=== PATIENT | male | born 1960 | race Asian ===

== ENCOUNTER 2018-05-25 06:12 | Day surgery (SDC) | payer OTHER ==
[~2018-05-25] VITALS: Ht 172.7 cm; Wt 66.7 kg
[2018-05-25] VITALS (14 sets, daily range): BP systolic 95–126; BP diastolic 58–88; PULSE 62–90; RESP 10–18; Ht 172.7 cm; Wt 66.7 kg
--- NOTE | 2018-05-25 07:27 | PREAC ---
Date/Time of Note Date/Time of Note DATE: 05/25/18 TIME: 07:26 Anesthesia Eval and Record Evaluation Time Pre-Procedure Interview DATE: 05/25/18 TIME: 07:26 Age 58 Sex male NPO: 8 hrs Preoperative diagnosis RIGHT INGUINAL HERNIA, NO OBSTRUCTION Planned procedure OPEN RIGHT INGUINAL HERNIA REPAIR Past Medical History Past Medical History: Includes Pulm: Smoking Hx (20 PY) Surgery & Anesthesia Issues No known issue Meds Anticoagulation: No Beta Brian within 24 hr: No Reason Beta Brian not given: Pt. not on B-Brian No Active Prescriptions or Reported Meds Current Medications Cefazolin Sodium/ Dextrose 50 ml @ 100 mls/hr PRE-OP IVPB ; Start 05/25/18 at 09:00 Sodium Chloride 1,000 ml @ 75 mls/hr [id number] IV ; Start 05/25/18 at 09:00; Stop 05/25/18 at 21:00 Meds reviewed: Yes Allergies Coded Allergies: No Known Drug Allergy (Verified Allergy, Unknown, 05/25/18) Allergies Reviewed: Yes Labs/Studies Labs Reviewed: Reviewed by anesthesiologist test: N/A Studies: ECG (SR), CXR (NL) Pre-procedure Exam Last vitals Vital Signs Date Temp Pulse Resp B/P (MAP) Pulse Ox O2 O2 Flow FiO2 Time Delivery Rate 05/25/18 97.7 90 18 110/70 98 Room Air 06:44 (83) Airway: Adequate mouth opening, Adequate thyromental dist Mallampati: Mallampati II Teeth: Normal Lung: Normal Heart: Normal ASA Physical Status ASA physical status: 2 Emergency: None Planned Anesthetic General/MAC: ETT Nerve block: TAP (right) Planned Pain Management Single shot nerve block, Parenteral pain med Pre-operative Attestations Prior to commencing anesthesia and surgery, the patient was re-evaluated, there was verification of: *The patient's identity *The results of appropriate recent lab work and preoperative vital signs *The above evaluation not changing prior to induction *Anesthetic plan, risk benefits, alternative and complications discussed with patient/family; questions answered; patient/family understands, accepts and wishes to proceed. Rohan Dunn M.D. May 25, 2018 07:27
[2018-05-25] MEDS ORDERED: OXYCODONE/ACETAMINOPHEN (5/325) TAB PO PRN ×2 (07:30)
[2018-05-25] MEDS ORDERED: DIPHENHYDRAMINE 50 MG INJ IV PRN (07:30)
[2018-05-25] MEDS ORDERED: MIDAZOLAM 1 MG/ML 2 ML INJ IV PRN (07:30)
[2018-05-25] MEDS ORDERED: LABETALOL HCL 20MG INJ IV PRN (07:30)
[2018-05-25] MEDS ORDERED: EPHEDrine SULFATE 50 MG/5 ML SYG IV PRN (07:30)
[2018-05-25] MEDS ORDERED: ALBUTEROL 0.083% (NEB) 2.5 MG/3 ML AMP HHN PRN (07:30)
[2018-05-25] MEDS ORDERED: TRIMETHOBENZAMIDE 100 MG/ML VIAL IM PRN (07:30)
[2018-05-25] MEDS ORDERED: MEPERIDINE 25 MG INJ IV PRN (07:30)
[2018-05-25] MEDS ORDERED: ONDANSETRON 4 MG INJ IV PRN (07:30)
[2018-05-25] MEDS ORDERED: HYDROmorphONE 1 MG/5 ML IV SYRINGE IV PRN ×2 (07:30)
[2018-05-25] MEDS ORDERED: hydrALAzine 20 MG INJ IV PRN (07:30)
[2018-05-25] MEDS ORDERED: IPRATROPIUM (NEB) 0.5 MG/2.5 ML AMP HHN PRN (07:30)
[2018-05-25] MEDS ORDERED: FENTAnyl 50 MCG/ML VIAL IV PRN ×2 (07:30)
[2018-05-25] MEDS ORDERED: FENTAnyl 50 MCG/ML VIAL ONE (07:41)
[2018-05-25] MEDS ORDERED: CEFAZOLIN 1 GM INJ ONE (07:41)
[2018-05-25] MEDS ORDERED: PROPOFOL 20 ML ONE (07:41)
[2018-05-25] MEDS ORDERED: ROCURONIUM 50 MG INJ ONE (07:41)
[2018-05-25] MEDS ORDERED: MIDAZOLAM 1 MG/ML 2 ML INJ ONE (07:41)
[2018-05-25] MEDS ORDERED: NEOSTIGMINE 3 MG/3 ML SYRINGE ONE ×2 (07:41→08:45)
[2018-05-25] MEDS ORDERED: GLYCOPYRROLATE 0.4 MG INJ ONE ×2 (07:41→08:45)
[2018-05-25] MEDS ORDERED: ONDANSETRON 4 MG INJ ONE (07:42)
[2018-05-25] MEDS ORDERED: DEXAMETHASONE 4 MG/ML 5 ML INJ ONE (07:42)
[2018-05-25] MEDS ORDERED: ROPIVACAINE 0.5 % 30 ML VIAL ONE (07:43)
[2018-05-25] MEDS ORDERED: PHENYLephrine (100 MCG/ML) 10ML SYG ONE (08:01)
[2018-05-25] MEDS ORDERED: POLYMYXIN/BACITRACIN 1L IRRIG IRR ONE (08:20)
--- NOTE | 2018-05-25 08:59 | OPR ---
Date/Time of Note Date/Time of Note DATE: 05/25/18 TIME: 08:55 Operative Report Procedure Date: May 25, 2018 Preoperative Diagnosis right incarcerated inguinal hernia Postoperative Diagnosis same Operation/Procedure Performed right incarcerated inguinal hernia repair with medium ultrapro plug mesh Surgeon see signature line Relationship Executive none Anesthesia Type: general Estimated Blood Loss: 0 - 10 ml's Transfusion none Specimen none Grafts/Implants none Complications none Pt Condition Post Procedure: stable Indications This is a 58-year-old male with incarcerated right inguinal hernia. He requires surgical repair. Risks alternatives benefits of percent were discussed with the patient. Patient expressed understanding and consents to the operation. Procedure Description Patient is taken to the OR and prepped and draped in usual sterile fashion. Surgical time was performed. IV antibiotics were given. Right inguinal oblique incision was made with a 10 blade. Dissection with cautery was carried onto the externally fascia. The external fascia was opened with a 15 blade. This incision is extended medial fairly lateral sparely with Metzenbaum scissors. Cord structures identified circumflex with a Friedens drain. Indirect hernia was dissected out and lysis of adhesions performed to manually reduce. The hernia sac was then isolated and the sac was opened. A sliding component was identified and manually reduced. The hernia sac was then suture ligated with 0 Vicryl and the excess sac was then excised and discarded. The disc portion of the ultra pro hernia system mesh was then used to secure and posterior this area. This disc is secured with running 0 Prolene from the pubic tubercle along the shelving is unlimited. Superiorly the disc is secured to enter oblique with interrupted 3-0 Vicryl. Onlay mesh was secured in a similar fashion with a running 0 Prolene made from the pubic tubercle along the shelving is unlimited. Straps are created reapproximate around the cord structures with interrupted 0 Prolene to recreate the inguinal ring. Onlay mesh was secured to enter oblique with interrupted 3-0 Vicryl. Externally fascia is closed with a running 3-0 Vicryl. Shilo's fascia was closed with interrupted 0 Vicryl. Skin is closed using a inyourdelivery observable skin stapler. A tap block was provided by the anesthesiologist at the beginning the case. Steri-Strips and dry dressings were applied. Gin QUINN May 25, 2018 08:58
[2018-05-25] MEDS ORDERED: HYDROCODONE/APAP (5/325) TAB PO ONE (09:00)
[2018-05-25] MEDS ORDERED: SOD CHLORIDE 0.9% 1,000 ML IV SCH (09:00)
[2018-05-25] MEDS ORDERED: CEFAZOLIN 2 GM/50 ML (PMX) 50 ML IVPB SCH (09:00)
--- NOTE | 2018-05-25 09:01 | PAC ---
Date/Time of Note Date/Time of Note DATE: 05/25/18 TIME: 09:01 Post-Anesthesia Notes Post-Anesthesia Note Last documented vital signs Vital Signs Date Temp Pulse Resp B/P (MAP) Pulse Ox O2 O2 Flow FiO2 Time Delivery Rate 05/25/18 97.7 90 18 110/70 98 Room Air 06:44 (83) Activity: WNL Respiratory function: WNL Cardiovascular function: WNL Mental status: Baseline Pain reasonably controlled: Yes Hydration appropriate: Yes Nausea/Vomiting absent: Yes Rohan Dunn M.D. May 25, 2018 09:01
[2018-05-25] MEDS: HYDROmorphONE 1 MG/5 ML IV SYRINGE IV PRN ×2 (09:14→09:57)
[2018-05-25] MEDS: FENTAnyl 50 MCG/ML VIAL IV PRN ×2 (09:31→09:58)
== END 2018-05-25 11:15 | disposition home or self-care (01) ==
LOC: SDS 06:12
PROVIDERS: ATTEND Surgery
DX: K40.90 Unilateral inguinal hernia, without obstruction or gangrene, not specified as recurrent (principal)
CPT/HCPCS: 49507; C1781; J0690; J1100; J1170; J2250; J2370; J2405; J2710; J2795; J3010; Z7512; Z7610